=== PATIENT | female | born 1985 | race Caucasian/White ===

== ENCOUNTER 2019-02-21 23:04 | Emergency (ER) | payer OTHER ==
[~2019-02-21] VITALS: Ht 170.2 cm; Wt 117.9 kg
[2019-02-21] MEDS ORDERED: SYNTHROID125 MCG (23:39)
[2019-02-22] MEDS ORDERED: EC-NAPROSYN500 MG PO (08:05)
[2019-02-22] MEDS ORDERED: NORFLEX100MG PO (08:05)
== END 2019-02-22 08:30 | disposition home or self-care (01) ==
LOC: ER 23:04
DX: M54.5 Low back pain (principal)

== ENCOUNTER 2024-04-26 18:17 | Outpatient (CLI) | payer OTHER ==
[~2024-04-26] VITALS: Ht 167.6 cm; Wt 131.5 kg
[2024-04-26 17:00] VITALS: BP 129/72
[~2024-04-26 18:17] MED LIST: EC-NAPROSYN500 MG PO; NORFLEX100MG PO; SYNTHROID125 MCG
[2024-04-26] MEDS ORDERED: RINGERS SOLUTION,LACTATED 1,000 ML IV SCH (18:30)
[2024-04-26 19:09] LABS: HEMATOCRIT 32.8 % (36.0-45.00); HEMOGLOBIN 11.2 g/dL (12.0-15.00); MEAN CELL VOLUME 77.9 fL (80.00-100.00); MEAN CORPUSCULAR HEMOGLOBIN 26.6 pg (27.00-32.0); MEAN CORPUSCULAR HGB CONC 34.1 g/dl (32.0-36.0); PLATELET COUNT 229 K/uL (150-450); RED BLOOD COUNT 4.21 M/uL (4.00-6.00); RED CELL DISTRIBUTION WIDTH 14.6 % (11.5-14.5)
[2024-04-26 19:43] LABS: INR 0.97; PARTIAL THROMBOPLASTIN TIME 27.9 SECONDS (22.0-34.0); PROTHROMBIN TIME 10.6 SECONDS (9.0-11.5)
[2024-04-26 20:16] VITALS: BP 112/68
[2024-04-26 23:17] VITALS: BP 112/67; O2SAT 97
[2024-04-27 04:10] VITALS: BP 104/63; O2SAT 100
[2024-04-27 06:15] VITALS: BP 107/69; O2SAT 99
== END 2024-04-27 10:49 | disposition home or self-care (01) ==
LOC: OBS/DEL 18:17
PROVIDERS: ATTEND Obstetrics & Gynecology Gynecology
DX: O36.8130 Decreased fetal movements, third trimester, not applicable or unspecified (principal); Z3A.32 32 weeks gestation of pregnancy

== ENCOUNTER 2024-06-05 08:09 | Outpatient (CLI) | payer OTHER | END 2024-06-05 08:49 | disposition home or self-care (01) | LOC: NST 08:09 | PROVIDERS: ATTEND Obstetrics & Gynecology Maternal & Fetal Medicine | DX: Z3A.37 37 weeks gestation of pregnancy (principal) ==

== ENCOUNTER 2024-06-12 14:15 | Inpatient (IN) | payer OTHER ==
[~2024-06-12] VITALS: Ht 170.2 cm; Wt 4.1 kg
[~2024-06-12 14:15] MED LIST changes: -SYNTHROID125 MCG; +SYNTHROID125 MCG PO
[2024-06-20 13:26] LABS: HEMATOCRIT 36.7 % (36.0-45.00); HEMOGLOBIN 12.1 g/dL (12.0-15.00); MEAN CELL VOLUME 79.8 fL (80.00-100.00); MEAN CORPUSCULAR HEMOGLOBIN 26.2 pg (27.00-32.0); MEAN CORPUSCULAR HGB CONC 32.9 g/dl (32.0-36.0); PLATELET COUNT 213 K/uL (150-450); RED CELL DISTRIBUTION WIDTH 15.8 % (11.5-14.5)
[2024-06-20 13:56] LABS: ALBUMIN 2.5 gm/dL (3.4-5.0); BILIRUBIN TOTAL 0.34 mg/dL (0.3-1.2); CALCIUM 9.1 mg/dL (8.5-10.1); CREATININE SERUM 0.57 mg/dL (0.55-1.02); GFR 118.08; GLOBULINA 3.8 G/DL (2.4-3.5); POTASSIUM 4.09 mEq/L (3.5-5.1); TOTAL PROTEIN 6.3 gm/dL (6.4-8.2)
[2024-06-20 14:05] LABS: INR < 0.93; PARTIAL THROMBOPLASTIN TIME 27.7 SECONDS (22.0-34.0)
[2024-06-21] MEDS ORDERED: CHILDREN'S ASPI81 MG PO (08:47)
[2024-06-21] MEDS ORDERED: MULTIGEN PLUS1 EACH PO (08:50)
[2024-06-21 08:52] VITALS: BP 127/82
[2024-06-21] MEDS ORDERED: OXYTOCIN 10 UNITS/ML VIAL ONE ×3 (12:50→17:27)
[2024-06-21] MEDS ORDERED: CITRIC ACID/SODIUM CITRATE 30 ML BLIST.PACK PO ONE (12:51)
[2024-06-21] MEDS ORDERED: ERYTHROMYCIN BASE OPHT 1GM EACH TUBE OP ONE ×2 (12:51→13:40)
[2024-06-21] MEDS ORDERED: CEFAZOLIN SODIUM 1,000 MG VIAL ONE (12:52)
[2024-06-21] MEDS ORDERED: CHLORHEXIDINE GLUCONATE 120 ML BOTTLE TOP ONE (13:50)
[2024-06-21] MEDS ORDERED: RINGERS SOLUTION,LACTATED 1,000 ML IV SCH (15:15)
[2024-06-21] MEDS ORDERED: MORPHINE SULFATE 4 MG/ML CARTRIDGE IV PRN (15:15)
[2024-06-21] MEDS ORDERED: OXYTOCIN 1,000 ML IV ONE (15:15)
[2024-06-21] MEDS ORDERED: KETOROLAC TROMETHAMINE 30 MG VIAL ONE (16:39)
[2024-06-21] MEDS ORDERED: SIMETHICONE 125 MG CAPSULE PO SCH (17:00)
[2024-06-21] MEDS ORDERED: GABAPENTIN 300 MG CAPSULE PO SCH (17:00)
[2024-06-21] MEDS ORDERED: ACETAMINOPHEN 500 MG GEL..CAP PO SCH (18:00)
[2024-06-21] MEDS ORDERED: KETOROLAC TROMETHAMINE 30 MG VIAL IV SCH (18:00)
[2024-06-21] MEDS ORDERED: ONDANSETRON HCL 2 MG/ML VIAL IV SCH (18:00)
[2024-06-21 18:15] VITALS: BP 126/79
[2024-06-21 21:26] VITALS: BP 135/76
[2024-06-22] VITALS: BP 120/77
[2024-06-22 06:54] LABS: HEMATOCRIT 29.1 % (36.0-45.00); MEAN CELL VOLUME 79.8 fL (80.00-100.00); MEAN CORPUSCULAR HEMOGLOBIN 27.4 pg (27.00-32.0); MEAN CORPUSCULAR HGB CONC 34.3 g/dl (32.0-36.0); PLATELET COUNT 144 K/uL (150-450); RED BLOOD COUNT 3.65 M/uL (4.00-6.00); RED CELL DISTRIBUTION WIDTH 15.7 % (11.5-14.5)
[2024-06-22] MEDS ORDERED: KETOROLAC TROMETHAMINE 10 MG TABLET PO SCH (08:00)
[2024-06-22] MEDS ORDERED: OxyCODONE HCL 5 MG TABLET (ROXICODONE) PO PRN (08:00)
[2024-06-22 08:14] VITALS: BP 125/80
[2024-06-22] MEDS ORDERED: DOCUSATE SODIUM 100MG CAP PO SCH (09:00)
[2024-06-22 17:29] VITALS: BP 120/80
[2024-06-22 21:10] VITALS: BP 128/80
[2024-06-22 23:55] VITALS: BP 128/77
[2024-06-23 08:00] VITALS: BP 119/78
[2024-06-23 17:46] VITALS: BP 135/81
[2024-06-23] MEDS ORDERED: OXYTOCIN 20 UNITS/1000ML RL PIGGYBAG IV ONE (19:00)
[2024-06-23] MEDS ORDERED: ERYTHROMYCIN BASE OPHT 1GM EACH TUBE OP ONE (19:00)
[2024-06-23 23:45] VITALS: BP 122/79
[2024-06-24 08:00] VITALS: BP 130/80
== END 2024-06-24 16:03 | disposition home or self-care (01) | DRG 788 ==
LOC: O/R 06-21 09:14 → OB/GYN 06-21 13:00
PROVIDERS: Obstetrics & Gynecology; ADMIT Obstetrics & Gynecology Maternal & Fetal Medicine; ATTEND Obstetrics & Gynecology Maternal & Fetal Medicine
PROC: 4A1HXCZ Monitoring of Products of Conception, Cardiac Rate, External Approach (ICD-10-PCS; 2024-06-21)
PROC: 10D00Z1 Extraction of Products of Conception, Low, Open Approach (ICD-10-PCS; principal; 2024-06-21 13:00)
DX: O36.63X0 Maternal care for excessive fetal growth, third trimester, not applicable or unspecified (principal); Z3A.40 40 weeks gestation of pregnancy; Z37.0 Single live birth